=== PATIENT | male | born 1990 | race African-American/Black ===

== ENCOUNTER 2020-02-24 19:56 | Emergency (ER) | payer SELFPAY ==
--- NOTE | 2020-02-24 20:07 | ECG_ITS ---
Test Reason : CHEST PRESSURE Blood Pressure : / mmHG Vent. Rate : 080 BPM Atrial Rate : 080 BPM P-R Int : 112 ms QRS Dur : 092 ms QT Int : 368 ms P-R-T Axes : 040 075 037 degrees QTc Int : 424 ms Normal sinus rhythm Minimal voltage criteria for LVH, may be normal variant Nonspecific ST abnormality Abnormal ECG No previous ECGs available Referred By: Jose Weems Electronically Signed By:NATHALY ROJO MD
[2020-02-24 20:33] VITALS: BP 140/80; PULSE 82; RESP 18; TEMP 37; O2SAT 99; BMI 31.3
--- NOTE | 2020-02-24 21:27 | XR_ITS ---
EXAMINATION: XR CHEST CLINICAL INFORMATION: Chest pain after trauma COMPARISON: None TECHNIQUE: 2 views of the chest were obtained. FINDINGS: No significant abnormality is noted involving the heart, lungs, mediastinum, bony thorax or soft tissues. XR/XR chest 2V IMPRESSION: Unremarkable examination.
--- NOTE | 2020-02-24 21:29 | ED_ITS ---
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 Related Data Previous Rx's Medication Instructions Recorded ibuprofen 800 mg PO Q8H PRN #20 tab 02/24/20 Allergies Allergy/AdvReac Type Severity Reaction Status Date / Time No Known Allergies Allergy Verified 02/24/20 20:32 Review of Systems Review of Systems: All other systems are reviewed and are negative Constitutional: Reports as per HPI and Reports no additional constitutional complaints Eyes: Reports as per HPI and Reports no additional eye complaints Reports system reviewed and no additional complaints, except as documented Cardiovascular: Reports as per HPI and Reports no additional cardiovascular complaints Respiratory: Reports as per HPI and Reports no additional respiratory complaints Gastrointestinal: Reports as per HPI and Reports no additional gastrointestinal complaints Genitourinary: Reports no additional female genitourinary complaints Musculoskeletal: Reports no additional musculoskeletal complaints Skin/Breast: Reports system reviewed and no additional complaints, except as docu Psychiatric: Reports no additional psychiatric complaints Endocrine: Reports no additional endocrine complaints Hematologic/Lymphatic: Reports no additional hematologic/lymphatic complaints Allergic/Immunologic: Reports no additional allergic/immunologic complaints Reports system reviewed and no additional complaints, except as documented and Reports Abnormal speech present FOR[facility] Social History Social History Alcohol intake: current Alcohol intake frequency: a few times a week Alcohol type: beer and hard liquor Smoking Status: Current every day smoker Smoked in Last 30 Days: Yes Substance Use Type: Marijuana Substance Use Frequency: Daily Last Used Substance: Hours (ago) Any prior treatment program specific to substance use: Yes Advance Directives: No Advance Directives Information Provided: No Physical Exam Vital Signs: Vital Signs: Last Vital Signs Temp 98.2 F 02/24/20 22:00 Pulse 70 02/24/20 22:00 Resp 18 02/24/20 22:00 BP 129/67 02/24/20 22:00 Pulse Ox 97 02/24/20 22:00 Body Mass Index 31.3 Vital signs have been reviewed as normal and appeared to be correct. Blood pressure on the high range Heart rate normal. Respiration rate normal. Temperature normal. Oxygen saturation normal. Appearance: Alert. Oriented X3. No acute distress. Head: Normal external exam. Normocephalic. Atraumatic. No Dominique signs noted. No raccoon eyes noted Eyes: PERRLA. EOMI. Conjunctiva and sclera normal. Eyelids normal. ENT: EAC normal. TM's Normal. Pharynx normal. Uvula midline. Moist mucous membranes. No trismus noted. No drooling noted. No muffled voice noted. Neck: Normal inspection. Neck supple. FROM. No adenopathy. Thyroid Normal. No meningeal signs. No neck mass noted. CVS: Normal heart rate and rhythm. Heart sound normal. No murmurs noted. Pulses normal throughout. Respiratory: No respiratory distress. Painless inspiration. Breath sounds normal. No wheezes/rales/rhonchi noted. Chest tender over the lower 1/3 of sternum, no step-off, no deformity, with about 2 cm superficial laceration with no active bleeding. No accessory muscle usage noted or decreased air movement noted. Abdomen: Soft and nontender. Bowel sounds normal in all 4 quadrants. No distention noted. No organomegaly noted. No visible injury noted. Back: No CVA tenderness. Full range of motion noted. Skin: Skin warm and dry. Normal skin color. Normal skin turgor. No rashes/lesions/lacerations noted. Extremities: No lower extremity edema. Extremities exhibit normal range of motion. Extremities nontender. Neuro: Oriented X 3. No motor deficit. No sensory deficit. Reflexes normal. 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 Will reassess. MDM - Chest Pain MDM Narrative Medical decision making narrative: 29-year-old male presented with mid chest pain after traumatic injury to chest at work. EKG is unremarkable, chest x-ray showing no acute injury, troponin is negative with no indication of myocardial injury. Patient was instructed to take NSAIDs for the next couple days with heating pad. Lab Data Attestation: I reviewed the patient's lab results. Result diagrams: 02/24/20 21:46 02/24/20 21:46 Labs: Lab Results 02/24/20 02/24/20 02/24/20 Range/Units 21:46 21:46 21:46 WBC 4.4 L (4.8-10.8) X10*3/uL RBC 4.39 L (4.60-5.80) X10*6/uL Hgb 13.6 L (14.0-18.0) g/dl Hct 40.5 L (42-52) % MCV 92.3 (80-98) fL MCH 31.0 (27.0-33.0) pg MCHC 33.6 (31.0-36.0) g/dl RDW 12.7 (11.0-16.0) % Plt Count 271 (160-400) X10*3/uL MPV 9.6 (9.4-12.4) fL Immature Gran % (Auto) 0.2 (0.0-0.4) % Neut % (Auto) 54.8 (45-73) % Lymph % (Auto) 32.3 (20-40) % [place] % (Auto) 11.5 H (2-11) % Eos % (Auto) 0.5 (0-4) % Baso % (Auto) 0.7 (0-2) % Lymph # (Auto) 1.4 (1.2-4.9) X10*3/uL [place] # (Auto) 0.5 (0.1-1.2) X10*3/uL Eos # (Auto) 0.0 (0.0-0.4) X10*3/uL Baso # (Auto) 0.0 (0.0-0.2) X10*3/uL Abs Immat Gran (auto) 0.01 (0.00-0.03) X10*3/uL Absolute Neuts (auto) 2.4 (2.0-8.3) X10*3/uL Absolute Nucleated RBC 0.000 (0.0-0.012) X10*3/uL Nucleated RBC % (auto) 0.0 (0.0-0.2) /100WBC Sodium 139 (135-145) mmol/L Potassium 3.8 (3.3-5.1) mmol/l Chloride 104 (96-108) mmol/L Carbon Dioxide 24 (22-29) mmol/L Anion Gap 15 (12-20) BUN 17 H (9-16) mg/dL Creatinine 1.18 (0.5-1.4) mg/dL Estim Creat Clear Calc 97.4 Estimated GFR > 60 Random Glucose 100 (60-115) mg/dL Calcium 9.2 (8.4-10.2) mg/dL Troponin I High Sens < 3.5 (<3.5-35.0) ng/L Lipase 25 (8-78) U/L Imaging Data Chest x-ray: Radiologist's impression: Unremarkable examination. ECG Data ECG #1: Interpretation: Normal sinus rhythm at 80 beats per minutes, normal intervals, normal axis, no ST-T ischemic changes Discharge Plan Discharge Clinical Impression: Chest wall contusion Qualifiers: Encounter type: initial encounter Laterality: unspecified laterality Qualified Code(s): S20.219A - Contusion of unspecified front wall of thorax, initial enco unter Patient Disposition: Home, Self-Care Instructions: Chest Wall Pain (ED) Prescriptions: New ibuprofen 800 mg tablet 800 mg PO Q8H PRN (Reason: pain) Qty: 20 RF: 0 Referrals: Larry Govea MD [Primary Care Provider] - 2 days Stand Alone Forms: Work/School Release
[2020-02-24 21:52] LABS: MANUAL DIFF FLAG NO
[2020-02-24 21:53] LABS: Basophils Percent Auto 0.7 % (0-2); Eosinophils Percent Auto 0.5 % (0-4); Hematocrit 40.5 % (42-52); Hemoglobin 13.6 g/dl (14.0-18.0); Imm Gran Abs Auto 0.01 X10*3/uL (0.00-0.03); Imm Gran Pct Auto 0.2 % (0.0-0.4); Lymphocytes Absolute Auto 1.4 X10*3/uL (1.2-4.9); Lymphocytes Percent Auto 32.3 % (20-40); Mean Corpuscular HGB Conc 33.6 g/dl (31.0-36.0); Mean Corpuscular Volume 92.3 fL (80-98); Mean Platelet Volume 9.6 fL (9.4-12.4); Monocytes Absolute Auto 0.5 X10*3/uL (0.1-1.2); Monocytes Percent Auto 11.5 % (2-11); Neutrophils Absolute Auto 2.4 X10*3/uL (2.0-8.3); Neutrophils Percent Auto 54.8 % (45-73); Platelet Count 271 X10*3/uL (160-400); Red Blood Count 4.39 X10*6/uL (4.60-5.80); Red Cell Distribution Width 12.7 % (11.0-16.0); White Blood Count 4.4 X10*3/uL (4.8-10.8)
[2020-02-24 22:00] VITALS: BP 129/67; PULSE 70; PULSE 71; RESP 18; TEMP 36.8; O2SAT 97
[2020-02-24 22:19] LABS: Anion Gap 15 (12-20); Blood Urea Nitrogen 17 mg/dL (9-16); Calcium 9.2 mg/dL (8.4-10.2); Carbon Dioxide 24 mmol/L (22-29); Chloride 104 mmol/L (96-108); Creatinine Clr Calc Pharmacy 97.4; Estimated Glomerular Filt Rate > 60; Glucose Random 100 mg/dL (60-115); Lipase 25 U/L (8-78); Potassium 3.8 mmol/l (3.3-5.1); Sodium 139 mmol/L (135-145)
[2020-02-24] MEDS: Ibuprofen 800 MG TABLET PO (22:40)
[2020-02-24 22:44] LABS: Troponin-I High Sensitivity < 3.5 ng/L (<3.5-35.0)
== END 2020-02-24 23:35 | disposition home or self-care (01) ==
PROVIDERS: Emergency Provider Emergency Medicine; PCP Internal Medicine
DX: S20.219A Contusion of unspecified front wall of thorax, initial encounter (principal); R07.89 Other chest pain; F12.90 Cannabis use, unspecified, uncomplicated; W13.2XXA Fall from, out of or through roof, initial encounter; Y93.9 Activity, unspecified; Y92.009 Unspecified place in unspecified non-institutional (private) residence as the place of occurrence of the external cause; Y99.9 Unspecified external cause status; F17.200 Nicotine dependence, unspecified, uncomplicated; Z71.6 Tobacco abuse counseling
CPT/HCPCS: 36415; 71046; 80048; 83690; 84484; 85025; 93005; 99283; 99284

== ENCOUNTER 2020-03-02 00:24 | Emergency (ER) | payer OTHER, SELFPAY ==
[2020-03-02 00:32] VITALS: BP 121/61; PULSE 84; RESP 18; TEMP 35.8; O2SAT 97; BMI 32.3
--- NOTE | 2020-03-02 00:47 | ED.GENADULT ---
HPI - General Adult General Chief complaint: Upper Respiratory Symptoms Stated complaint: Cough Time Seen by Provider: 03/02/20 00:36 Source: patient Mode of arrival: ambulatory Limitations: no limitations History of Present Illness HPI narrative: This is a 29-year-old male who presents with cough and complaints of chills but denies any headache, shortness of breath, chest pain /palpitations, but states he is having some diarrhea without any urinary pain/ burning /frequency. States that this is been ongoing since Sunday. Related Data Previous Rx's Medication Instructions Recorded ibuprofen 800 mg PO Q8H PRN #20 tab 02/24/20 Allergies Allergy/AdvReac Type Severity Reaction Status Date / Time No Known Allergies Allergy Verified 02/24/20 20:32 Review of Systems Review of Systems: Pertinent positives and negatives as stated in the HPI and 10 point review of systems otherwise negative PMFSH Past Medical History Source: nursing notes reviewed Social History Social History Alcohol intake: current Alcohol intake frequency: a few times a week Alcohol type: beer and hard liquor Smoking Status: Current every day smoker Substance Use Type: Marijuana Advance Directives: No Physical Exam Vital Signs: Vital Signs: Last Vital Signs Temp 96.5 F L 03/02/20 00:32 Pulse 84 03/02/20 00:32 Resp 18 03/02/20 00:32 BP 121/61 03/02/20 00:32 Pulse Ox 97 03/02/20 00:32 Body Mass Index 32.3 VITAL SIGNS: Reviewed. GENERAL: Well developed, well nourished, in no acute distress. HEAD: Normocephalic/atraumatic, EYES: PERRLA, EOMI intact without pain, no nystagmus/pallor/icterus noted EARS: Ext canals without abnormality, TMs non-bulging and non-erythematous NOSE: Nares patent bilateral OROPHARYNX: no oral lesions noted, posterior pharynx clear and non-erythematous without noted tonsillar enlargement/erythema/exudates NECK: Supple, no adenopathy LUNGS: Normal breath sounds. No adventitious sounds or accessory muscle use. SpO2<97> CARDIOVASCULAR: Regular rate and rhythm without noted murmurs, no JVD or lower extremity edema. ABDOMEN: Soft, non-tender, non-distended with bowel sounds. No rigidity. No guarding. No palpable masses or hernias noted MUSCULOSKELETAL: No tenderness, deformities, or effusions noted on gross inspection. EXTREMITIES: No cyanosis, clubbing or edema. SKIN: Inspection of the skin reveals no rashes, ulcerations, jaundice, pallor, or petechiae. NEUROLOGIC: Alert and oriented x 4. Strength and sensation to light touch were grossly intact x 4. Course Course Course Narrative: This is a 29-year-old male with history and clinical presentation consistent with possible viral syndrome, he is not hypoxic, he will be COVID-19 tested and will be discharged home with supportive treatment if found to be negative. Patient's COVID-19 test is negative for COVID-19 as well as influenza, he is not hypoxic, and will be discharged with recommendations for supportive treatment for viral syndrome. Medical Decision Making Lab Data Labs: Lab Results 03/02/20 Range/Units 00:44 Coronavirus (PCR) NEGATIVE (Negative) Influenza Type A (PCR) NEGATIVE (Negative) Influenza Type B (PCR) NEGATIVE (Negative) RSV RNA Qual (PCR) NEGATIVE (Negative) Discharge Plan Discharge Clinical Impression: Viral syndrome Patient Disposition: Home, Self-Care Instructions: Viral Syndrome (ED) Additional Instructions: 1. Tylenol 1000 mg, orally, every 6 hours as needed for temperature greater than 100.4 or body aches. Do not exceed 4000 mg within 24 hours. 2. Ibuprofen 400 mg, orally with milk or food, every 6 hours as needed for temperature greater than 100.4 or body aches. 3. increase fluid hydration specifically with water. 4. please follow-up with your primary care provider for further management. The patient and/or family acknowledge understanding of results (as applicable), diagnosis, treatment plan, need for follow up, and symptoms that should prompt a return to the emergency room. Prescriptions: No Action ibuprofen 800 mg tablet 800 mg PO Q8H PRN (Reason: pain) Qty: 20 RF: 0 Referrals: Physician,Unknown [Primary Care Provider] - 2 days ( Re-evaluation of symptoms.)
[2020-03-02 01:42] LABS: Influenza A PCR NEGATIVE (Negative); Influenza B PCR NEGATIVE (Negative); Resp Syncy Virus RNA Qual PCR NEGATIVE (Negative); SARS COV2 PCR INHOUSE NEGATIVE (Negative)
== END 2020-03-02 02:00 | disposition home or self-care (01) ==
PROVIDERS: Emergency Provider Student in an Organized Health Care Education/Training Program
DX: B34.9 Viral infection, unspecified (principal); R05 Cough; F17.200 Nicotine dependence, unspecified, uncomplicated; Z71.6 Tobacco abuse counseling; Z20.828 Contact with and (suspected) exposure to other viral communicable diseases
CPT/HCPCS: 0241U; 99283

== ENCOUNTER 2020-09-07 01:28 | Emergency (ER) | payer OTHER, SELFPAY ==
[2020-09-07 01:32] VITALS: BP 122/71; PULSE 78; RESP 16; TEMP 36.8; O2SAT 98; BMI 29.0
--- NOTE | 2020-09-07 02:43 | ED_ITS ---
HPI - Abdominal Pain General Chief Complaint: Abdominal Pain Stated Complaint: Abd pain Time Seen by Provider: 09/07/20 02:43 Source: patient Mode of arrival: ambulatory History of Present Illness HPI narrative: This is a 30-year-old male who presents with mid upper abdominal pain that is worse with eating and associated with diarrhea that is not black or red in nature. Patient states that this has been ongoing for the past 3-5 days. He states that every time he eats his stomach feels very full and it is painful. He states for 3 days he was unable to eat, but states he was able day yesterday but only chicken noodle soup. However, patient was able to drink alcohol 2 days ago and was able to keep that down. Otherwise, he denies fever, chills, urinary pain/burning/frequency, shortness of breath, chest pain/palpitations. Related Data Previous Rx's Medication Instructions Recorded ibuprofen 800 mg PO Q8H PRN #20 tab 02/24/20 sucralfate [Carafate] 10 ml PO BID #420 ml 09/07/20 Allergies Allergy/AdvReac Type Severity Reaction Status Date / Time No Known Allergies Allergy Verified 02/24/20 20:32 Review of Systems Review of Systems Pertinent positives and negatives as stated in HPI 10 point review of systems is otherwise negative. Physical Exam Vital Signs: Vital Signs: Last Vital Signs Temp 98.3 F 09/07/20 01:32 Pulse 78 09/07/20 01:32 Resp 16 09/07/20 01:32 BP 122/71 09/07/20 01:32 Pulse Ox 98 09/07/20 01:32 Body Mass Index 29.0 VITAL SIGNS: Reviewed. GENERAL: Well developed, well nourished, in no acute distress. HEAD: Normocephalic/atraumatic EYES: PERRLA, EOMI EARS: Ext canals without abnormality NOSE: Nares patent bilateral OROPHARYNX: no oral lesions noted, posterior pharynx clear NECK: Supple, no adenopathy LUNGS: Normal breath sounds. No adventitious sounds or accessory muscle use. SpO2<98> CARDIOVASCULAR: Regular rate and rhythm without noted murmurs ABDOMEN: Soft, non-tender on exam, non-distended with bowel sounds. Course Course Course Narrative: 30-year-old male with history and clinical presentation suggestive of gastric ulcer suspect may be secondary to alcohol use given history of alcohol consumption, but no evidence bleeding in the history. Possible pancreatitis. Review of all investigations there are no acute findings. On re-evaluation patient's stomach feels better and he was instructed follow-up with his primary care provider with discussion for possible referral to GI. MDM - Abdominal Pain Lab Data Result diagrams: 09/07/20 04:12 09/07/20 04:12 Labs: Lab Results 09/07/20 09/07/20 09/07/20 Range/Units 04:12 04:12 04:12 WBC 4.7 L (4.8-10.8) X10*3/uL RBC 4.11 L (4.60-5.80) X10*6/uL Hgb 12.7 L (14.0-18.0) g/dl Hct 37.4 L (42-52) % MCV 91.0 (80-98) fL MCH 30.9 (27.0-33.0) pg MCHC 34.0 (31.0-36.0) g/dl RDW 12.1 (11.0-16.0) % Plt Count 220 (160-400) X10*3/uL MPV 9.6 (9.4-12.4) fL Immature Gran % (Auto) 0.2 (0.0-0.4) % Neut % (Auto) 38.5 L (45-73) % Lymph % (Auto) 49.4 H (20-40) % [place] % (Auto) 9.4 (2-11) % Eos % (Auto) 1.9 (0-4) % Baso % (Auto) 0.6 (0-2) % Lymph # (Auto) 2.3 (1.2-4.9) X10*3/uL [place] # (Auto) 0.4 (0.1-1.2) X10*3/uL Eos # (Auto) 0.1 (0.0-0.4) X10*3/uL Baso # (Auto) 0.0 (0.0-0.2) X10*3/uL Abs Immat Gran (auto) 0.01 (0.00-0.03) X10*3/uL Absolute Neuts (auto) 1.8 L (2.0-8.3) X10*3/uL Absolute Nucleated RBC 0.000 (0.0-0.012) X10*3/uL Nucleated RBC % (auto) 0.0 (0.0-0.2) /100WBC PT 12.1 (10.8-13.0) SEC INR 1.0 (0.9-1.1) Sodium 140 (135-145) mmol/L Potassium 4.1 (3.3-5.1) mmol/L Chloride 106 (96-108) mmol/L Carbon Dioxide 25 (22-29) mmol/L Anion Gap 13 (12-20) BUN 19 H (9-16) mg/dL Creatinine 0.91 (0.5-1.4) mg/dL Estim Creat Clear Calc 116.9 Estimated GFR > 60 Random Glucose 100 (60-115) mg/dL Calcium 8.6 D (8.4-10.2) mg/dL Magnesium (1.6-2.6) mg/dL Total Bilirubin 0.4 (0.0-1.0) mg/dL AST 25 (5-37) U/L ALT 20 (0-40) U/L Alkaline Phosphatase 56 (39-117) U/L Total Protein 6.0 L (6.5-8.0) g/dL Albumin 3.9 (3.5-5.0) g/dL Lipase 24 (8-78) U/L Ethyl Alcohol mg/dL 09/07/20 09/07/20 Range/Units 04:12 04:12 WBC (4.8-10.8) X10*3/uL RBC (4.60-5.80) X10*6/uL Hgb (14.0-18.0) g/dl Hct (42-52) % MCV (80-98) fL MCH (27.0-33.0) pg MCHC (31.0-36.0) g/dl RDW (11.0-16.0) % Plt Count (160-400) X10*3/uL MPV (9.4-12.4) fL Immature Gran % (Auto) (0.0-0.4) % Neut % (Auto) (45-73) % Lymph % (Auto) (20-40) % [place] % (Auto) (2-11) % Eos % (Auto) (0-4) % Baso % (Auto) (0-2) % Lymph # (Auto) (1.2-4.9) X10*3/uL [place] # (Auto) (0.1-1.2) X10*3/uL Eos # (Auto) (0.0-0.4) X10*3/uL Baso # (Auto) (0.0-0.2) X10*3/uL Abs Immat Gran (auto) (0.00-0.03) X10*3/uL Absolute Neuts (auto) (2.0-8.3) X10*3/uL Absolute Nucleated RBC (0.0-0.012) X10*3/uL Nucleated RBC % (auto) (0.0-0.2) /100WBC PT (10.8-13.0) SEC INR (0.9-1.1) Sodium (135-145) mmol/L Potassium (3.3-5.1) mmol/L Chloride (96-108) mmol/L Carbon Dioxide (22-29) mmol/L Anion Gap (12-20) BUN (9-16) mg/dL Creatinine (0.5-1.4) mg/dL Estim Creat Clear Calc Estimated GFR Random Glucose (60-115) mg/dL Calcium (8.4-10.2) mg/dL Magnesium 2.1 (1.6-2.6) mg/dL Total Bilirubin (0.0-1.0) mg/dL AST (5-37) U/L ALT (0-40) U/L Alkaline Phosphatase (39-117) U/L Total Protein (6.5-8.0) g/dL Albumin (3.5-5.0) g/dL Lipase (8-78) U/L Ethyl Alcohol < 10 mg/dL Discharge Plan Discharge Clinical Impression: Abdominal pain, epigastric, Alcohol use disorder, Gastritis Patient Disposition: Home, Self-Care Instructions: Gastritis (ED), Diet for Stomach Ulcers and Gastritis (ED) Additional Instructions: 1. Please resume all home medications as prescribed. 2. Stop using any ibuprofen, Motrin, Aleve as this will further irritate your stomach. 3. Also, stop drinking alcohol this is going to worsen your stomach condition. 4. Follow-up with your primary care provider in the next 2-3 days for re- evaluation. Return to the ER for any acute worsening of symptoms. Prescriptions: New sucralfate [Carafate] 100 mg/mL suspension 10 ml PO BID Qty: 420 RF: 0 No Action ibuprofen 800 mg tablet 800 mg PO Q8H PRN (Reason: pain) Qty: 20 RF: 0 Referrals: Physician,Unknown [Primary Care Provider] - 2 days PMFSH Past Medical History Source: nursing notes reviewed Social History Social History Alcohol intake: current Alcohol intake frequency: a few times a week Alcohol t ype: beer and hard liquor Smoking Status: Current every day smoker Substance Use Type: Marijuana Advance Directives: No Advance Directives Information Provided: No
[2020-09-07] MEDS: Magnesium Hydrox/Alum Hydrox 30 ML ORAL.SUSP PO (04:13)
[2020-09-07] MEDS: Lidocaine HCl Viscous 2 % 15 ML SOLUTION 10 ML MUCOUS MEM (04:13)
--- NOTE | 2020-09-07 04:15 | PC.NURSE ---
While medicating patient, patient was sleeping prior to entering room. Labs drawn and sent for analysis.
[2020-09-07 04:23] LABS: MANUAL DIFF FLAG NO
[2020-09-07 04:24] LABS: Basophils Percent Auto 0.6 % (0-2); Eosinophils Absolute Auto 0.1 X10*3/uL (0.0-0.4); Eosinophils Percent Auto 1.9 % (0-4); Hematocrit 37.4 % (42-52); Hemoglobin 12.7 g/dl (14.0-18.0); Imm Gran Abs Auto 0.01 X10*3/uL (0.00-0.03); Imm Gran Pct Auto 0.2 % (0.0-0.4); Lymphocytes Absolute Auto 2.3 X10*3/uL (1.2-4.9); Lymphocytes Percent Auto 49.4 % (20-40); Mean Corpuscular Hemoglobin 30.9 pg (27.0-33.0); Mean Platelet Volume 9.6 fL (9.4-12.4); Monocytes Absolute Auto 0.4 X10*3/uL (0.1-1.2); Monocytes Percent Auto 9.4 % (2-11); Neutrophils Absolute Auto 1.8 X10*3/uL (2.0-8.3); Neutrophils Percent Auto 38.5 % (45-73); Platelet Count 220 X10*3/uL (160-400); Red Blood Count 4.11 X10*6/uL (4.60-5.80); Red Cell Distribution Width 12.1 % (11.0-16.0); White Blood Count 4.7 X10*3/uL (4.8-10.8)
[2020-09-07 04:35] LABS: Prothrombin Time 12.1 SEC (10.8-13.0)
[2020-09-07 04:59] LABS: Ethanol < 10 mg/dL
[2020-09-07 05:01] LABS: Magnesium 2.1 mg/dL (1.6-2.6)
[2020-09-07 05:03] LABS: Alanine Aminotransferase 20 U/L (0-40); Albumin Level 3.9 g/dL (3.5-5.0); Alkaline Phosphatase 56 U/L (39-117); Anion Gap 13 (12-20); Aspartate Amino Transferase 25 U/L (5-37); Bilirubin Total 0.4 mg/dL (0.0-1.0); Blood Urea Nitrogen 19 mg/dL (9-16); Calcium 8.6 mg/dL (8.4-10.2); Carbon Dioxide 25 mmol/L (22-29); Chloride 106 mmol/L (96-108); Creatinine Clr Calc Pharmacy 116.9; Estimated Glomerular Filt Rate > 60; Glucose Random 100 mg/dL (60-115); Lipase 24 U/L (8-78); Potassium 4.1 mmol/L (3.3-5.1); Sodium 140 mmol/L (135-145)
--- NOTE | 2020-09-07 05:35 | PC.NURSE ---
Patient sleeping at this time. Will continue to monitor.
[2020-09-07 07:33] LABS: Glucose Urine UA NEG (NEG); Leukocyte Esterase Urine 1+ (NEG); Nitrite Urine NEG (NEG); Specific Gravity - Urine 1.015 (1.005-1.025); UACC Culture Trigger YES; Urine Blood NEG (NEG); Urine Ketones NEG (NEG); Urine Protein NEG (NEG-TRACE)
[2020-09-07 07:36] LABS: Appearance Urine CLEAR; Color Urine YELLOW
[2020-09-07 07:43] LABS: RBC Urine 0 /HPF (0); Squamous Epithelial Cell Urine TRACE /LPF
[2020-09-07 07:53] LABS: Amphetamine Screen Urine Not Detected (Not Detect); Barbiturates, Urine Not Detected (Not Detect); Benzodiazepines Screen Urine Not Detected (Not Detect); Cannabinoid Screen Urine POSITIVE (Not Detect); Cocaine Screen Urine Not Detected (Not Detect); Opiate Screen Urine Not Detected (Not Detect); Phencyclidine Screen Urine Not Detected (Not Detect)
== END 2020-09-07 07:25 | disposition home or self-care (01) ==
PROVIDERS: Emergency Provider Student in an Organized Health Care Education/Training Program
DX: R10.13 Epigastric pain (principal); F10.20 Alcohol dependence, uncomplicated; Y90.0 Blood alcohol level of less than 20 mg/100 ml; K29.70 Gastritis, unspecified, without bleeding; F12.90 Cannabis use, unspecified, uncomplicated
CPT/HCPCS: 36415; 80053; 80307; 80320; 81001; 81003; 83690; 83735; 85025; 85610; 87086; 99283

== ENCOUNTER 2022-01-04 23:09 | Emergency (ER) | payer OTHER, SELFPAY ==
[2022-01-05 00:12] VITALS: BP 149/86; PULSE 92; RESP 20; TEMP 37.6; O2SAT 97; BMI 29.0
[2022-01-05 01:05] LABS: COVID-19 Test Negative (Negative)
--- NOTE | 2022-01-05 02:11 | ED_ITS ---
HPI - General Adult General Chief complaint: General Medical Stated complaint: strep throat?, ear infection Time Seen by Provider: 01/05/22 02:06 History of Present Illness HPI narrative: 31-year-old male presents today with having sore throat ongoing for 2 days earache no cough and no congestion or upper respiratory symptoms. Positive generalized malaise. There has been no change in diet there has been some diarrhea there has been no nausea no vomiting. No recent antibiotics. No travel. Related Data Previous Rx's Medication Instructions Recorded ibuprofen 800 mg tablet 800 mg PO Q8H PRN pain #20 tabs 02/24/20 sucralfate 100 mg/mL oral 10 ml PO BID #420 mL 09/07/20 suspension (Carafate) penicillin V potassium 500 mg 500 mg PO TID 10 days #30 tabs 01/05/22 tablet Allergies Allergy/AdvReac Type Severity Reaction Status Date / Time No Known Allergies Allergy Verified 02/24/20 20:32 Review of Systems Review of Systems: Positive sore throat. Able to tolerate p.o.. No changes in voice. Yes all other systems are reviewed and are negative FOR[facility]LY [facility], [facility] Past Medical History Attestation statement: The following information was validated with the patient. Social History Social History Alcohol intake: current Alcohol intake frequency: a few times a week Alcohol type: beer and hard liquor Substance Use Type: Marijuana Advance Directives: No Physical Exam ED Vital Signs: Vital Signs - 24 hr 01/05/22 00:12 01/05/22 02:30 Temperature 99.6 F 98.4 F Pulse Rate 92 86 Respiratory Rate 20 16 Blood Pressure 149/86 H 139/86 Pulse Oximetry 97 98 Oxygen Delivery Method Room Air Room Air BMI result Body Mass Index 29.0 Appearance: Alert. Oriented X3. No acute distress. Eyes: Pupils equal, round and reactive to light. ENT: Posterior pharynx was erythematous. Tonsils enlarged. There is no exudates noted. Uvula is midline normal.. TMs intact bilaterally there is no erythema noted Neck: Normal inspection. Neck supple. No lymph nodes noted. No crepitus CVS: Normal heart rate and rhythm. Pulses normal. Normal S1 and S2 Respiratory: No respiratory distress. Breath sounds normal. No Wheezing. No rales Abdomen: Soft and nontender. No rigidity. No distention. good BS x4 Skin: Skin warm and dry. Normal skin color. Normal skin turgor. Extremities: No lower extremity edema. Neurovascular intact to all extremities. No Lacerations. No Rash Neuro: Oriented X 3. No motor deficit. No sensory deficit. Moving all extermities. No slurred speech Medical Decision Making MDM Narrative Medical decision making narrative: Patient's COVID test was negative. Will get a rapid strep. Monitor carefully. Patient's rapid strep was positive. We will go ahead and start patient on antibiotic. Motrin for pain. Lab Data Labs: Lab Results 01/05/22 01/05/22 Range/Units 00:32 02:14 COVID-19 ([facility]) Negative (Negative) COVID-19 Clin Com See Note S. pyogenes GrpA DOMINIQUE Positive A (Negative) Discharge Plan Discharge Clinical Impression: Acute pharyngitis Patient Disposition: Home, Self-Care Instructions: Pharyngitis (ED) Prescriptions: New penicillin V potassium 500 mg tablet 500 mg PO TID 10 Days Qty: 30 0RF No Action ibuprofen 800 mg tablet 800 mg PO Q8H PRN (Reason: pain) Qty: 20 0RF sucralfate [Carafate] 100 mg/mL suspension 10 ml PO BID Qty: 420 0RF Referrals: Physician,Unknown J [Primary Care Provider] -
[2022-01-05 02:23] LABS: Strep A Nucleic Acid Positive (Negative)
[2022-01-05 02:30] VITALS: BP 139/86; PULSE 86; RESP 16; TEMP 36.9; O2SAT 98
== END 2022-01-05 03:03 | disposition home or self-care (01) ==
PROVIDERS: Emergency Provider Emergency Medicine Emergency Medical Services
DX: J02.9 Acute pharyngitis, unspecified (principal); Z20.822 Contact with and (suspected) exposure to COVID-19; Z79.899 Other long term (current) drug therapy
CPT/HCPCS: 36415; 87635; 87651; 99283